=== PATIENT | male | born 1995 | race Caucasian/White ===

== ENCOUNTER 2023-03-22 18:20 | Emergency (ER) | payer OTHER, SELFPAY ==
--- NOTE | 2023-03-22 18:23 | ED_ITS ---
HPI - General Adult General Chief complaint: Body Fluid Exposure Stated complaint: needle stick on duty Time Seen by Provider: 03/22/23 20:00 Source: patient Mode of arrival: ambulatory History of Present Illness HPI narrative: 27-year-old male without significant past medical history and up-to-date on all typical vaccines presents today with an accidental needlestick injury while on duty. Patient states that he was clearing some belongings, wearing gloves and was padding down a jacket when he was caught by a needle without obvious deep penetration, no bleeding. Related Data Allergies Allergy/AdvReac Type Severity Reaction Status Date / Time No Known Allergies Allergy Verified 03/22/23 18:22 Review of Systems Review of Systems: Pertinent positives and negatives as stated in HPI [facility] Past Medical History Source: nursing notes reviewed Social History Social History Advance Directives: No Advance Directives Information Provided: No Advance Directives on File: No Physical Exam ED Vital Signs: Vital Signs - 24 hr 03/22/23 18:52 Temperature 98 F Pulse Rate 89 Respiratory Rate 16 Blood Pressure 123/72 Pulse Oximetry 96 Oxygen Delivery Method Room Air BMI result Body Mass Index 29.5 VITAL SIGNS: Reviewed. GENERAL: Well developed, well nourished, in no acute distress. HEAD: Normocephalic/atraumatic EYES: PERRLA, EOMI EARS: Ext canals without abnormality NOSE: Nares patent bilateral OROPHARYNX: no oral lesions noted, posterior pharynx clear NECK: Supple, no adenopathy LUNGS: Normal breath sounds. No adventitious sounds or accessory muscle use. SpO2<96> CARDIOVASCULAR: Regular rate and rhythm without noted murmurs ABDOMEN: Soft, non-tender, non-distended with bowel sounds. MUSCULOSKELETAL: No tenderness, deformities, or effusions noted on gross inspection. EXTREMITIES: No cyanosis, clubbing or edema; RIGHT HAND: Extensive evaluation of fingers does not demonstrate a significant, discrete deep needlestick injury does appear to be very superficial SKIN: Inspection of the skin reveals no rashes NEUROLOGIC: Alert and oriented x 4. Strength and sensation to light touch were grossly intact x 4. Course Course Course Narrative: This is an RME: Additional HPI, ROS, PE not included below will be deferred to primary provider. 27 year old male presents s/p work related injury with a needle stick of unknown individual to Edis middle finger. Patient was in the alley and got stuck with what looked like a used needle. ( patient brought in needle). Unable to visualize puncture wound not bleeding <<0.001?% Or, 1 in [id number]. PEP treatment not indicated, according to the article Patient thinking about PEP vs no PEP Reevaluation(s) Reevaluation #1: 03/25/2023 - Pt's labwork revealing negative hep b, HIV. however pt is not immunized against hep b. I called and spoke to patient and educated patient to call primary care physician tomorrow to get hepatitis-B booster. Patient understands and agrees with plan. No questions or concerns. Time: 10:00 Medical Decision Making Medical Decision Making MDM Narrative: 27-year-old male with history and clinical presentation most consistent with accidental needlestick injury in the line a duty. It seems that this needlestick injury was quite superficial as there is no evidence of significant penetration. Basic labs as well as initial hepatitis A,B, and C as well as HIV. It was explained to the patient that he would need to have these repeated and that he should follow-up with his employee health 1st thing in the morning. Differential Diagnosis Please see the discussion above Lab Data Please see the discussion 03/22/23 18:38 03/22/23 18:38 Labs: Lab Results 03/22/23 03/22/23 03/22/23 Range/Units 18:38 18:38 18:38 WBC 7.8 (4.8-10.8) X10*3/uL RBC 4.92 (4.60-5.80) X10*6/uL Hgb 14.4 (14.0-18.0) g/dl Hct 41.1 L (42.0-52.0) % MCV 83.5 (80.0-98.0) fL MCH 29.3 (27.0-33.0) pg MCHC 35.0 (31.0-36.0) g/dl RDW 12.4 (11.0-16.0) % Plt Count 195 (160-400) X10*3/uL MPV 10.1 (9.4-12.4) fL Immature Gran % (Auto) 0.3 (0.0-0.4) % Neut % (Auto) 63.6 (45-73) % Lymph % (Auto) 26.1 (20-40) % [place] % (Auto) 8.0 (2-11) % Eos % (Auto) 1.5 (0-4) % Baso % (Auto) 0.5 (0-2) % Lymph # (Auto) 2.0 (1.2-4.9) X10*3/uL [place] # (Auto) 0.6 (0.1-1.2) X10*3/uL Eos # (Auto) 0.1 (0.0-0.4) X10*3/uL Baso # (Auto) 0.0 (0.0-0.2) X10*3/uL Abs Immat Gran (auto) 0.02 (0.00-0.03) X10*3/uL Absolute Neuts (auto) 4.9 (2.0-8.3) x10*3/uL Absolute Nucleated RBC 0.000 (0.0-0.012) X10*3/uL Nucleated RBC % (auto) 0.0 (0.0-0.2) /100WBC Sodium 139 (135-145) mmol/L Potassium 4.2 (3.3-5.1) mmol/L Chloride 107 (96-108) mmol/L Carbon Dioxide 25 (22-29) mmol/L Anion Gap 11 L (12-20) BUN 16 (9-16) mg/dL Creatinine 0.91 (0.5-1.4) mg/dL Estim Creat Clear Calc 136.9 Estimated GFR > 60 Random Glucose 109 (60-115) mg/dL Calcium 9.4 (8.4-10.2) mg/dL Magnesium 2.0 (1.6-2.6) mg/dL Total Bilirubin 0.4 (0.0-1.0) mg/dL AST 19 (5-37) U/L ALT 32 (0-40) U/L Alkaline Phosphatase 62 (39-117) U/L Total Protein 7.3 (6.5-8.0) g/dL Albumin 4.5 (3.5-5.0) g/dL Hepatitis A IgM Ab Nonreactive (Nonreactive) Hep Bs Antigen Negative (Negative) Hep Bs Antibody NONREACTIVE (Nonreactive) Hep B Core Total Ab Nonreactive (Nonreactive) Hepatitis C Ab (EIA) Nonreactive (Nonreactive) HIV 1&2 Ab/P24 Ag 4thGn Nonreactive (Nonreactive) Discharge Plan Discharge Clinical Impression: Exposure to body fluid due to accidental needlestick injury Patient Disposition: Home, Self-Care Instructions: Needle Stick Injuries (ED) Additional Instructions: Please follow-up with your employee health in the morning. Please speak with registration on the way out and they will instruct you on high urine access your results via the patient portal system. You will need to repeat these tests in 30 days. Do not hesitate to return to the emergency room for any other concerns. Interventions: ED Discharge Assessment Last Done: 03/22/23 21:18 Discharge Date/Time: 03/22/23 21:19
[2023-03-22 18:42] LABS: MANUAL DIFF FLAG NO
[2023-03-22 18:44] LABS: Basophils Percent Auto 0.5 % (0-2); Eosinophils Absolute Auto 0.1 X10*3/uL (0.0-0.4); Eosinophils Percent Auto 1.5 % (0-4); Hematocrit 41.1 % (42.0-52.0); Hemoglobin 14.4 g/dl (14.0-18.0); Imm Gran Abs Auto 0.02 X10*3/uL (0.00-0.03); Imm Gran Pct Auto 0.3 % (0.0-0.4); Lymphocytes Percent Auto 26.1 % (20-40); Mean Corpuscular Hemoglobin 29.3 pg (27.0-33.0); Mean Corpuscular Volume 83.5 fL (80.0-98.0); Mean Platelet Volume 10.1 fL (9.4-12.4); Monocytes Absolute Auto 0.6 X10*3/uL (0.1-1.2); Neutrophils Absolute Auto 4.9 x10*3/uL (2.0-8.3); Neutrophils Percent Auto 63.6 % (45-73); Platelet Count 195 X10*3/uL (160-400); Red Blood Count 4.92 X10*6/uL (4.60-5.80); Red Cell Distribution Width 12.4 % (11.0-16.0); White Blood Count 7.8 X10*3/uL (4.8-10.8)
[2023-03-22 18:52] VITALS: BP 123/72; PULSE 89; RESP 16; TEMP 36.6; O2SAT 96; BMI 29.5
[2023-03-22 19:01] LABS: Alanine Aminotransferase 32 U/L (0-40); Albumin Level 4.5 g/dL (3.5-5.0); Alkaline Phosphatase 62 U/L (39-117); Anion Gap 11 (12-20); Aspartate Amino Transferase 19 U/L (5-37); Bilirubin Total 0.4 mg/dL (0.0-1.0); Blood Urea Nitrogen 16 mg/dL (9-16); Calcium 9.4 mg/dL (8.4-10.2); Carbon Dioxide 25 mmol/L (22-29); Chloride 107 mmol/L (96-108); Creatinine Clr Calc Pharmacy 136.9; Estimated Glomerular Filt Rate > 60; Glucose Random 109 mg/dL (60-115); Potassium 4.2 mmol/L (3.3-5.1); Sodium 139 mmol/L (135-145); Total Protein 7.3 g/dL (6.5-8.0)
[2023-03-23 09:30] LABS: HBS Num1 7.27 mIU/mL (0-7.99); HBc Num1 0.08 S/CO (0.00-0.79); HBsAGNum1 0.45 S/CO (0.00-0.99); HIV AB/AG Nonreactive (Nonreactive); HIV Num 1 0.07 S/CO (0.00-0.99); Hepatitis A Antibody IgM 0.23 Index (0-0.79); Hepatitis B Core Antibody Nonreactive (Nonreactive); Hepatitis B Surface Antigen Negative (Negative); ~HepC Num1 0.19 S/CO (0.00-0.79); ~Hepatitis A Antibody IgM Nonreactive (Nonreactive); ~Hepatitis B Surface Antibody NONREACTIVE (Nonreactive); ~Hepatitis C Antibody Nonreactive (Nonreactive)
== END 2023-03-22 21:19 | disposition home or self-care (01) ==
PROVIDERS: Physician Assistant; Emergency Provider Student in an Organized Health Care Education/Training Program
DX: Z20.828 Contact with and (suspected) exposure to other viral communicable diseases (principal); Z79.899 Other long term (current) drug therapy
CPT/HCPCS: 36415; 80053; 83735; 85025; 86704; 86706; 86709; 86803; 87340; 87389; 99282; 99283